=== PATIENT | female | born 2000 | race Caucasian/White ===

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

== ENCOUNTER 2025-01-09 03:24 | Emergency (ER) | payer MEDICAID | END 2025-01-09 03:40 | disposition left against medical advice (07) | LOC: EMS 03:25 | DX: Z53.21 Procedure and treatment not carried out due to patient leaving prior to being seen by health care provider (principal) ==